=== PATIENT | female | born 1965 | race African-American/Black ===

== ENCOUNTER → 2021-03-17 14:54 | Outpatient (CLI) | payer OTHER, SELFPAY ==
[2021-03-17 15:26] LABS: COVID19 -Nasal RAPID Negative (Negative)
== END ==
PROVIDERS: Visit Provider Physician Assistant
DX: Z20.822 Contact with and (suspected) exposure to COVID-19 (principal)
CPT/HCPCS: 87635

== ENCOUNTER → 2021-03-17 15:37 | Outpatient (CLI) | payer OTHER, SELFPAY ==
--- NOTE | 2021-03-17 15:42 | DI.RAD.S_ITS ---
PROCEDURE: XR CHEST 2V INDICATIONS: cough, chest congestion, hx PNA TECHNIQUE: 2 views of the chest were acquired. COMPARISON: None. FINDINGS: Surgical changes and devices: None. Lungs and pleura: Masslike opacity is noted within the left perihilar region. Mediastinum: Mediastinal contours are normal. Heart size is enlarged. Bones and chest wall: No suspicious bony abnormalities. Soft tissues appear unremarkable. IMPRESSION: Masslike area perihilar opacity. While this could represent pneumonia, mass of other etiology cannot be excluded. No priors are available for comparison. CT chest is recommended for further evaluation. Dictated by: Yelitza Chiang M.D. on 03/17/2021 at 15:57 Approved by: Yelitza Chiang M.D. on 03/17/2021 at 15:58
== END ==
PROVIDERS: Referring Provider Physician Assistant; Visit Provider Physician Assistant
DX: J06.9 Acute upper respiratory infection, unspecified (principal); R91.8 Other nonspecific abnormal finding of lung field; R09.89 Other specified symptoms and signs involving the circulatory and respiratory systems; Z20.822 Contact with and (suspected) exposure to COVID-19; Z87.01 Personal history of pneumonia (recurrent)
CPT/HCPCS: 71046; 87635

== ENCOUNTER 2022-03-28 17:50 | Emergency (ER) | payer OTHER, SELFPAY ==
[2022-03-28] VITALS (10 sets, daily range): BP systolic 199–241; BP diastolic 85–118; PULSE 90–99; RESP 16–20; TEMP 37.5; O2SAT 93–95; BMI 47.3
--- NOTE | 2022-03-28 18:18 | ED.URI ---
HPI - URI/Sore Throat General Chief Complaint: Upper Respiratory Symptoms Stated Complaint: COVID +, Low oxy Time Seen by Provider: 03/28/22 18:09 Source: patient Mode of arrival: Wheelchair History of Present Illness HPI Narrative: 56-year-old female nonsmoker with history of hypertension presents with some shortness of breath with exertion. She states that she is had a cough for upwards of 2 weeks and presents today because family had told her that she seems more short of breath when she is walking than normal. She is had no fever or chills. Denies headache, fever, sore throat nor chest pain. She has no abdominal pain, nausea, vomiting or diarrhea. She denies being exposed to any obviously ill persons. She took both of her blood pressure medications about 1 hour prior to arrival. Related Data Home Medications Medication Instructions Recorded Confirmed atenolol 100 mg tablet 100 mg PO DAILY 03/28/22 03/28/22 benazepril 40 mg tablet 40 mg PO DAILY 03/28/22 03/28/22 Previous Rx's Medication Instructions Recorded furosemide 40 mg tablet (Lasix) 40 mg PO DAILY #5 tabs 03/28/22 hydralazine 100 mg tablet 100 mg PO TID #90 tabs 03/28/22 Allergies Allergy/AdvReac Type Severity Reaction Status Date / Time ibuprofen Allergy Swelling Verified 03/28/22 17:59 of Lip/Tongue/Throat Sulfa (Sulfonamide Allergy Anaphylaxis Verified 03/28/22 17:33 Antibiotics) Review of Systems Review of Systems Narrative: GENERAL: Denies chills, fatigue, malaise, fever, sweats. HEENT: Denies sinus pain, ear pain, sore throat, difficulty swallowing, dizziness. RESPIRATORY: See HPI CARDIOVASCULAR: Denies chest pain, palpitations, orthopnea, edema, GASTROINTESTINAL: Denies nausea, vomiting, abdominal pain, diarrhea, constipation, melena. : Denies dysuria, frequency, incontinence, hematuria, urinary retention. MUSCULOSKELETAL: denies weakness, joint pain, or bony pain SKIN: Denies rash, skin lesions, or other NEUROLOGIC: Denies weakness, headache, numbness, change in speech, confusion, seizures, incoordination. PSYCHIATRIC: No concerning psychosocial issues. 12 point review of systems is negative except for those stated above Patient History Social History Smoking Status: Never smoker Smoking Status: Never smoker Substance Use Type: does not use Exam Narrative Exam Narrative: GENERAL: [56] year old patient appears stated age. Well-developed patient, in mild distress. HEAD: Atraumatic. Normocephalic. EYES: Pupils equal round and reactive. Extraocular motions intact. No scleral icterus. No injection or drainage. ENT: Nose without bleeding, purulent drainage. Throat without erythema, tonsillar hypertrophy or exudate. Airway patent. NECK: Trachea midline. Non tender CARDIOVASCULAR: Regular rate and rhythm without murmurs, gallops, or rubs. RESPIRATORY:Faint crackles in bilateral bases. No wheezes or rhonchi, no evidence of respiratory distress, use of accessory muscles, tachypnea or hypoxemia i. GASTROINTESTINAL: Abdomen soft, non-tender, nondistended. EXTREMITIES: No edema or joint tenderness. BACK: Nontender without deformity or crepitance. No flank tenderness. NEURO: AOx3. SKIN: No rash or erythema of visible areas Initial Vital Signs Initial Vital Signs: Vital Signs Temperature 99.5 F 03/28/22 18:00 Pulse Rate 90 03/28/22 18:00 Respiratory Rate 20 03/28/22 18:00 Blood Pressure 238/118 H 03/28/22 18:00 Pulse Oximetry 95 03/28/22 18:00 Oxygen Delivery Method 03/28/22 18:00 Course Orders Ordered: ED Orders 03/28/22 18:19 Chest [XR chest 2V] Stat 03/28/22 18:25 EKG-12 Lead Stat 03/28/22 18:43 Complete Blood Count AUTO DIFF Stat Comprehensive Metabolic Panel Stat Lactate (Lactic Acid) Stat Magnesium Stat NT-proBNP (BNP-Adult 18+) Stat Procalcitonin Stat Troponin & CK Cardiac Panel Stat 03/28/22 19:46 Covid-19 + FLU A/B + RSV - PCR Stat Discontinued Medications Acetaminophen (Acetaminophen 325 Mg Tablet) 975 mg PO NOW ONE Stop: 03/28/22 20:28 Last Admin: 03/28/22 20:32 Dose: 975 mg Documented By: TAMIR Furosemide (Furosemide 40 Mg/4 Ml Vial) 40 mg IV NOW ONE Stop: 03/28/22 20:27 Last Admin: 03/28/22 20:33 Dose: 40 mg Documented By: TAMIR Hydralazine HCl (Hydralazine 20 Mg/Ml Vial) 20 mg IV NOW ONE Stop: 03/28/22 19:43 Last Admin: 03/28/22 19:49 Dose: 20 mg Documented By: TAMIR Labetalol HCl (Labetalol 20 Mg/4 Ml Syringe) 10 mg IV NOW ONE Stop: 03/28/22 18:25 Last Admin: 03/28/22 19:04 Dose: 10 mg Documented By: SALONI Nitroglycerin (Nitroglycerin 0.4 Mg Sl Tab) 0.4 mg SL NOW ONE Stop: 03/28/22 20:27 Last Admin: 03/28/22 20:31 Dose: 0.4 mg Documented By: TAMIR Reevaluation(s) Reevaluation #1: Blood pressure remains in the 240s over 100s after labetalol, hydralazine ordered Time: 19:43 Reevaluation #2: BP now 212/99 after hydralazine Time: 20:27 Vital Signs Vital signs: Vital Signs - 8 hr 03/28/22 18:00 03/28/22 19:04 03/28/22 19:45 Temperature 99.5 F Pulse Rate 90 97 H 96 H Respiratory Rate 20 16 Blood Pressure 238/118 H 235/105 H 241/111 H Pulse Oximetry 95 93 Oxygen Delivery Method Room Air Room Air 03/28/22 19:49 03/28/22 20:08 03/28/22 20:26 Temperature Pulse Rate 99 H 98 H Respiratory Rate 16 16 Blood Pressure 241/111 H 237/107 H 212/99 H Pulse Oximetry 93 Oxygen Delivery Method 03/28/22 20:31 03/28/22 20:59 03/28/22 21:15 Temperature Pulse Rate 97 H 98 H 90 Respiratory Rate 16 18 Blood Pressure 212/99 H 217/95 H 206/88 H Pulse Oximetry 93 93 Oxygen Delivery Method Room Air Room Air MDM - URI/Sore Throat Lab Data Result diagrams: 03/28/22 18:43 03/28/22 18:43 Labs: Lab Results 03/28/22 03/28/22 03/28/22 Range/Units 18:43 18:43 18:43 WBC 6.6 (4.5-11.0) X10^3/uL RBC 3.98 L (4.0-5.2) X10^6/uL Hgb 12.0 (12.0-16.0) g/dL Hct 36.0 (36-46) % MCV 90.4 (80-100) fL MCH 30.3 (26-34) PG MCHC 33.5 (30-36) % RDW 16.8 H (11.6-14.8) % Plt Count 238 (150-400) X10^3/uL Neut % (Auto) 80.2 H (50-75) % Lymph % (Auto) 5.9 L (25-40) % [place] % (Auto) 13.0 (3-14) % Eos % (Auto) 0.6 L (2-4) % Baso % (Auto) 0.3 (0-2) % Neut # (Auto) 5300 (7087-2771) /uL Lymph # (Auto) 400 L (8258-5833) /uL [place] # (Auto) 900 (0-900) /uL Eos # (Auto) 0 (0-450) /uL Baso # (Auto) 0 (0-100) /uL Sodium 140 (137-145) mmol/L Potassium 3.4 (3.4-5.1) mmol/L Chloride 101 (98-107) mmol/L Carbon Dioxide 27 (22-32) mmol/L BUN 11 (7-17) mg/dL Creatinine 1.03 (0.52-1.04) mg/dL Estimated GFR > 60 (>60) mL/min BUN/Creatinine Ratio 10.7 (6-22) Glucose 105 H (70-100) mg/dL Lactate 1.0 (0.7-2.1) mmol/L Calcium 9.6 (8.4-10.2) mg/dL Magnesium 1.6 (1.6-2.3) mg/dL Total Bilirubin 1.2 (0.2-1.3) mg/dL AST 30 (14-36) IU/L ALT 24 (<35) IU/L Alkaline Phosphatase 121 (38-126) U/L Total Creatine Kinase (30-135) U/L CK-MB (CK-2) (<2.37) ng/mL CK-MB (CK-2) Rel Index (1.5-5.0) % Troponin I (0.01-0.034) ng/mL NT-Pro-B Natriuret Pep 957 H (<125) pg/mL Total Protein 8.6 H (6.3-8.2) g/dL Albumin 4.1 (3.5-5.0) g/dL Globulin 4.5 H (1.7-4.1) g/dL Albumin/Globulin Ratio 0.9 L (1.0-2.8) Procalcitonin (<0.5) ng/mL SARS-CoV-2 (PCR) (Negative) Influenza A (RT-PCR) (NEGATIVE) Influenza B (RT-PCR) (NEGATIVE) RSV (PCR) (Negative) 03/28/22 03/28/22 03/28/22 Range/Units 18:43 18:43 19:46 WBC (4.5-11.0) X10^3/uL RBC (4.0-5.2) X10^6/uL Hgb (12.0-16.0) g/dL Hct (36-46) % MCV (80-100) fL MCH (26-34) PG MCHC (30-36) % RDW (11.6-14.8) % Plt Count (150-400) X10^3/uL Neut % (Auto) (50-75) % Lymph % (Auto) (25-40) % [place] % (Auto) (3-14) % Eos % (Auto) (2-4) % Baso % (Auto) (0-2) % Neut # (Auto) (0902-3101) /uL Lymph # (Auto) (1901-5247) /uL [place] # (Auto) (0-900) /uL Eos # (Auto) (0-450) /uL Baso # (Auto) (0-100) /uL Sodium (137-145) mmol/L Potassium (3.4-5.1) mmol/L Chloride (98-107) mmol/L Carbon Dioxide (22-32) mmol/L BUN (7-17) mg/dL Creatinine (0.52-1.04) mg/dL Estimated GFR (>60) mL/min BUN/Creatinine Ratio (6-22) Glucose (70-100) mg/dL Lactate (0.7-2.1) mmol/L Calcium (8.4-10.2) mg/dL Magnesium (1.6-2.3) mg/dL Total Bilirubin (0.2-1.3) mg/dL AST (14-36) IU/L ALT (<35) IU/L Alkaline Phosphatase (38-126) U/L Total Creatine Kinase 245 H (30-135) U/L CK-MB (CK-2) 0.28 (<2.37) ng/mL CK-MB (CK-2) Rel Index 0.1 L (1.5-5.0) % Troponin I < 0.012 (0.01-0.034) ng/mL NT-Pro-B Natriuret Pep (<125) pg/mL Total Protein (6.3-8.2) g/dL Albumin (3.5-5.0) g/dL Globulin (1.7-4.1) g/dL Albumin/Globulin Ratio (1.0-2.8) Procalcitonin 0.07 (<0.5) ng/mL SARS-CoV-2 (PCR) Positive H (Negative) Influenza A (RT-PCR) Flu a negative (NEGATIVE) Influenza B (RT-PCR) Flu b negative (NEGATIVE) RSV (PCR) Negative (Negative) Imaging Data Chest x-ray: Radiologist's Impression: [address] [id number] ReportSigned Patient: Chauncey Fu WMR#: [id number]: 4Acct:[id number]/Sex: 77 / MDate of Service: 03/28/22Loc: EDAccession Number: [id number] Procedure: XR chest 1V Ordering Provider: Fernando Carrizales D.O. PROCEDURE: XR CHEST 1V INDICATIONS: Short of breath TECHNIQUE: One view of the chest was acquired. COMPARISON: Outside Film, CT, CT CHEST WITHOUT CONTRAST, 01/31/2022, 11:40. FINDINGS: Surgical changes and devices: Post CABG changes are seen. Lungs and pleura: An incomplete inspiratory result is noted, causing a crowded appearance to the lung markings. No focal infiltrates are seen. No pneumothorax or significant pleural effusions are seen. Mild, streaky opacities are seen at the lung bases. Mediastinum: Mediastinal contours appear normal. Heart size is normal. A large hiatal hernia is seen. Atherosclerotic calcification of the aortic arch is noted. Bones and chest wall: No suspicious bony lesions. Age-appropriate bony degenerative changes are seen. Overlying soft tissues appear unremarkable. IMPRESSION: Low lung volumes, with likely atelectasis at the lung bases. Large hiatal hernia again seen. Postoperative and degenerative changes are seen. Dictated by: Attila Gómez M.D. on 03/28/2022 at 17:23 Approved by: Attila Gómez M.D. on 03/28/2022 at 17:24 ECG Data Interpretation: [1928] EKG is normal sinus rhythm rate [96 ] and free of any signs of ischemia or ectopy. LVH noted MDM Narrative Medical decision making narrative: 56-year-old female with history of hypertension presents with increasing shortness of breath and some body aches with dry hacking cough and a home COVID test that is positive. She denies any headache or blurred vision and has no chest pain. Differential diagnosis includes influenza, COVID-19, bacterial pneumonia, pulmonary edema among others. Blood pressure improves from the to 30s to low 200s over 80s with above-stated therapies, she has no increased work of breathing or hypoxemia at any point. BNP is slightly elevated and chest x-ray would suggest maybe pulmonary edema, patient is given furosemide and produces dilute urine. No indication for admission at this time, return precautions discussed, prescription sent to her pharmacy of choice and questions answered to her apparent satisfaction Discharge Plan Departure Patient Disposition: Home Clinical Impression: COVID-19, CHF (congestive heart failure), HTN (hypertension) Instructions: High Blood Pressure, DI for Heart Failure, COVID-19 Activity Restrictions/Additional Instructions: *You have been diagnosed with [COVID, mild pulmonary edema and hypertension. As we discussed your history and physical exam are reassuring, labs are reassuring and would suggest a bit of your shortness of breath is due to fluid overload. We will give you a water pill to take daily for each of the next few days, this should help with your blood pressure as well.] *What to do: *Please continue to take your regular medications as directed. [ x] New medication prescriptions sent to your pharmacy: [ ] [ ] New medication written as a paper prescription [ ] No new medications given *Please follow up with your primary care provider in 2-3 days, call for an appointment. Let them know you were seen in the Emergency Department and that we ask that you be seen in follow up. We will electronically transmit a record of today's note if your PCP is in our system *If you do not have a primary care provider please contact the [facility] Resource line at [phone]. They will ask some questions about your medical history and help get you set up with a doctor in the community. *Return to Emergency Department if you should have any new, worsening or concerning symptoms, such as [fever greater than 101 F, shaking chills, worsening pain, persistent vomiting or other bothersome symptoms] *You have been diagnosed with [ COVID-19] *What to do: ?* per recommendations from the CDC and the [facility] Department of Health ?* stay home except to get medical care. ?Restrict activities outside your home, except for getting medical care. ?Do not go to work, school, or public areas. ?Avoid using public transportation, ride sharing, or taxis. ?* separate yourself from other people in your home. ?* call ahead before visiting your doctor ?* Wear a facemask ?* Cover your coughs and sneezes ?* Clean your hands often ?* Avoid sharing household items ?* Clean all high-touch services every day ?* Monitor your symptoms and seek prompt medical attention if your illness is worsening, particularly with difficulty in breathing. You may discontinue your isolation when: ?1. You have been fever-free for at least 24 hours without the use of fever reducing medication, AND ?2. Your symptoms are getting better, AND ?3. At least 5 days have passed since symptoms first appeared ?4. If you have fever, continue to stay home until fever resolves Individuals with laboratory confirmed COVID-19 who have not had any symptoms may discontinue home isolation when at least 5 days have passed since the date of their first COVID-19 diagnostic test and have had no subsequent illness You should notifiy any friends and family that have been in close contact *If up to date on COVID Vaccines, then they do not need to quarantine unless symptoms develop. Get tested on day 5 (or sooner if symptoms develop). Take precautions and watch for symptoms until day 10 *If NOT up to date on COVID Vaccines, then CDC recommends quarantine for at least 5 full days. Wear a well fitted mask at home if you must be around others. If they ?develop symptoms they should get tested. If they remain asymptomatic they should get tested on day 5. They should take precautions and monitor for symptoms until day 10. Prescriptions: New hydralazine 100 mg tablet 100 mg PO TID Qty: 90 0RF furosemide [Lasix] 40 mg tablet 40 mg PO DAILY Qty: 5 0RF No Action atenolol 100 mg tablet 100 mg PO DAILY benazepril 40 mg tablet 40 mg PO DAILY Referrals: Miscellaneous,Doctor, MD [Primary Care Provider] -
--- NOTE | 2022-03-28 18:19 | DI.RAD.S_ITS ---
PROCEDURE: XR CHEST 2V INDICATIONS: cough, recent COVID diagnosis TECHNIQUE: 2 views of the chest were acquired. COMPARISON: [facility], CR, XR CHEST 2V, 03/17/2021, 15:36. FINDINGS: Surgical changes and devices: None. Lungs and pleura: There is appearance of increased interstitial opacities. Mediastinum: Mediastinal contours are normal. Heart size is mildly prominent. Bones and chest wall: No suspicious bony abnormalities. Soft tissues appear unremarkable. IMPRESSION: Increased interstitial opacities suggestive of pneumonia versus edema. Dictated by: Yelitza Chiang M.D. on 03/28/2022 at 19:24 Approved by: Yelitza Chiang M.D. on 03/28/2022 at 19:24
[2022-03-28 18:59] LABS: Add Manual Diff / Slide Review NO; Basophils Absolute Auto 0 /uL (0-100); Basophils Percent Auto 0.3 % (0-2); Eosinophils Absolute Auto 0 /uL (0-450); Eosinophils Percent Auto 0.6 % (2-4); Lymphocytes Absolute Auto 400 /uL (1100-4500); Lymphocytes Percent Auto 5.9 % (25-40); Mean Corpuscular HGB Conc 33.5 % (30-36); Mean Corpuscular Hemoglobin 30.3 PG (26-34); Mean Corpuscular Volume 90.4 fL (80-100); Monocytes Absolute Auto 900 /uL (0-900); Neutrophils Absolute Auto 5300 /uL (1500-7000); Neutrophils Percent Auto 80.2 % (50-75); Platelet Count 238 X10^3/uL (150-400); Red Blood Cell Count 3.98 X10^6/uL (4.0-5.2); Red Cell Distribution Width 16.8 % (11.6-14.8); White Blood Cell Count 6.6 X10^3/uL (4.5-11.0)
[2022-03-28] MEDS: LABETALOL 20 MG/4 ML SYRINGE 10 MG IV (19:04)
[2022-03-28 19:10] LABS: Creatine Kinase 245 U/L (30-135)
[2022-03-28 19:12] LABS: Alanine Aminotransferase 24 IU/L (<35); Albumin 4.1 g/dL (3.5-5.0); Albumin Globulin Ratio 0.9 (1.0-2.8); Alkaline Phosphatase 121 U/L (38-126); Aspartate Aminotransferase 30 IU/L (14-36); BUN Creatinine Ratio 10.7 (6-22); Bilirubin Total 1.2 mg/dL (0.2-1.3); Blood Urea Nitrogen 11 mg/dL (7-17); Calcium 9.6 mg/dL (8.4-10.2); Carbon Dioxide 27 mmol/L (22-32); Chloride 101 mmol/L (98-107); Estimated Glomerular Filt Rate > 60 mL/min (>60); Globulin 4.5 g/dL (1.7-4.1); Glucose 105 mg/dL (70-100); HEMOLYSIS 44 (0-50); Magnesium 1.6 mg/dL (1.6-2.3); Potassium 3.4 mmol/L (3.4-5.1); Sodium 140 mmol/L (137-145); Total Protein 8.6 g/dL (6.3-8.2)
[2022-03-28 19:21] LABS: NT-proBNP (BNP-Adult 18+) 957 pg/mL (<125)
[2022-03-28 19:23] LABS: Troponin I < 0.012 ng/mL (0.01-0.034)
[2022-03-28 19:26] LABS: CKMB % Relative Index 0.1 % (1.5-5.0); Creatine Kinase MB 0.28 ng/mL (<2.37)
[2022-03-28] MEDS: HYDRALAZINE 20 MG/ML VIAL IV (19:49)
[2022-03-28] MEDS: NITROGLYCERIN 0.4 MG SL TAB SL (20:31)
[2022-03-28] MEDS: ACETAMINOPHEN 325 MG TABLET 975 MG PO (20:32)
[2022-03-28] MEDS: FUROSEMIDE 40 MG/4 ML VIAL IV (20:33)
[2022-03-28 20:38] LABS: Procalcitonin 0.07 ng/mL (<0.5)
[2022-03-28 20:39] LABS: Influenza A - CEPHEID Flu A NEGATIVE (NEGATIVE); Influenza B - CEPHEID Flu B NEGATIVE (NEGATIVE); Respiratory Syncytial Virus Negative (Negative)
[2022-03-28 20:51] LABS: COVID-19 CEPHEID 4-PLEX PCR POSITIVE (Negative)
== END 2022-03-28 21:40 | disposition home or self-care (01) ==
PROVIDERS: Emergency Provider Emergency Medicine
DX: U07.1 COVID-19 (principal); I50.9 Heart failure, unspecified; I10 Essential (primary) hypertension
CPT/HCPCS: 0241U; 36415; 71046; 80053; 82550; 82553; 83605; 83735; 83880; 84145; 84484; 85025; 93005; 96374; 96375; 99284; J0360; J1940

== ENCOUNTER 2022-04-29 08:01 | Emergency (ER) | payer OTHER, SELFPAY ==
[2022-04-29] VITALS (9 sets, daily range): BP systolic 123–212; BP diastolic 90–114; PULSE 75–95; RESP 22–28; TEMP 36.8; O2SAT 93–96; BMI 46.7
--- NOTE | 2022-04-29 08:37 | ED_ITS ---
HPI - SOB/Dyspnea General Chief Complaint: Shortness of Breath/Dyspnea Stated Complaint: cough and SOB since 04/02 Time Seen by Provider: 04/29/22 08:30 Source: patient Mode of arrival: Ambulatory Limitations: no limitations History of Present Illness HPI Narrative: Patient is a 56-year-old female history of hypertension presents today with increasing shortness of breath. She reports that she went to [place] june through January by the end of February she was diagnosed with COVID. She was actually seen evaluated here in the emergency department 03/28/2022 found to have some congestive heart failure she was put on Lasix which she said improved. However she continues to have cough and shortness of breath with exertion. She reports orthopnea but no peripheral edema. She denies any fever or chills. But does report some productive cough. She denies any chest pain. She is noted to be quite hypertensive in the emergency department. She says she just can not get rid of the cough. She denies any nausea vomiting or abdominal pain Related Data Home Medications Medication Instructions Recorded Confirmed atenolol 100 mg tablet 100 mg PO DAILY 03/28/22 03/28/22 benazepril 40 mg tablet 40 mg PO DAILY 03/28/22 03/28/22 Previous Rx's Medication Instructions Recorded furosemide 40 mg tablet (Lasix) 40 mg PO DAILY #5 tabs 03/28/22 hydralazine 100 mg tablet 100 mg PO TID #90 tabs 03/28/22 Allergies Allergy/AdvReac Type Severity Reaction Status Date / Time ibuprofen Allergy Swelling Verified 03/28/22 17:59 of Lip/Tongue/Throat Sulfa (Sulfonamide Allergy Anaphylaxis Verified 03/28/22 17:33 Antibiotics) Review of Systems Review of Systems ROS Unobtainable: All systems reviewed & are unremarkable except as noted in HPI and below Patient History Social History Smoking Status: Never smoker Smoking Status: Never smoker Substance Use Type: does not use Exam Initial Vital Signs Initial Vital Signs: Vital Signs Temperature 98.3 F 04/29/22 08:16 Pulse Rate 84 04/29/22 08:16 Respiratory Rate 24 04/29/22 08:16 Blood Pressure 123/114 H 04/29/22 08:16 Pulse Oximetry 93 04/29/22 08:16 Oxygen Delivery Method 04/29/22 08:16 GENERAL: Alert pleasant 56-year-old female HEENT: Head atraumatic,EOMI, pupils reactive, face symmetric, moist mucous membranes CARDIOVASCULAR: Regular rate and rhythm without murmurs, rubs or gallops. RESPIRATORY: Clear bilaterally about cough with breathing speaking full sentences no respiratory distress ABDOMEN: Soft, nontender. Normoactive bowel sounds all 4 quadrants. No guar ding or rebound. EXTREMITIES: Normal range of motion, no clubbing or edema. Neurovascularly intact NEUROLOGICAL: Alert and oriented x4.Normal gait and speech. SKIN: Warm, dry, no laceration, no petechiae, no rashes or lesions. Course Orders Ordered: Discontinued Medications Albuterol (Albuterol 2.5 Mg/3 Ml Neb (Adult)) 2.5 mg INH NOW ONE Stop: 04/29/22 08:39 Last Admin: 04/29/22 10:36 Dose: 2.5 mg Documented By: NR Vital Signs Vital signs: Vital Signs - 8 hr 04/29/22 16:13 04/29/22 16:14 Pulse Rate 95 H Respiratory Rate 22 Blood Pressure 211/94 H Pulse Oximetry 96 Oxygen Delivery Method Room Air MDM - SOB/Dyspnea Lab Data Result diagrams: 04/29/22 11:20 04/29/22 11:20 Labs: Lab Results 04/29/22 04/29/22 04/29/22 Range/Units 09:02 11:20 11:20 WBC (4.5-11.0) X10^3/uL RBC (4.0-5.2) X10^6/uL Hgb (12.0-16.0) g/dL Hct (36-46) % MCV (80-100) fL MCH (26-34) PG MCHC (30-36) % RDW (11.6-14.8) % Plt Count (150-400) X10^3/uL Neut % (Auto) (50-75) % Lymph % (Auto) (25-40) % [place] % (Auto) (3-14) % Eos % (Auto) (2-4) % Baso % (Auto) (0-2) % Neut # (Auto) (1132-1313) /uL Lymph # (Auto) (2022-8691) /uL [place] # (Auto) (0-900) /uL Eos # (Auto) (0-450) /uL Baso # (Auto) (0-100) /uL D-Dimer 1021 H (<500) ng/ml Sodium (137-145) mmol/L Potassium (3.4-5.1) mmol/L Chloride (98-107) mmol/L Carbon Dioxide (22-32) mmol/L BUN (7-17) mg/dL Creatinine (0.52-1.04) mg/dL Estimated GFR (>60) mL/min BUN/Creatinine Ratio (6-22) Glucose (70-100) mg/dL Calcium (8.4-10.2) mg/dL Total Bilirubin (0.2-1.3) mg/dL AST (14-36) IU/L ALT (<35) IU/L Alkaline Phosphatase (38-126) U/L Total Creatine Kinase (30-135) U/L CK-MB (CK-2) (<2.37) ng/mL CK-MB (CK-2) Rel Index (1.5-5.0) % Troponin I (0.01-0.034) ng/mL NT-Pro-B Natriuret Pep (<125) pg/mL Total Protein (6.3-8.2) g/dL Albumin (3.5-5.0) g/dL Globulin (1.7-4.1) g/dL Albumin/Globulin Ratio (1.0-2.8) Lipase (23-300) U/L Procalcitonin 0.06 (<0.5) ng/mL SARS-CoV-2 (PCR) Negative (Negative) Influenza A (RT-PCR) Flu a negative (NEGATIVE) Influenza B (RT-PCR) Flu b negative (NEGATIVE) RSV (PCR) Positive A (Negative) 04/29/22 04/29/22 Range/Units 11:20 11:20 WBC 6.4 (4.5-11.0) X10^3/uL RBC 3.83 L (4.0-5.2) X10^6/uL Hgb 11.7 L (12.0-16.0) g/dL Hct 34.9 L (36-46) % MCV 91.1 (80-100) fL MCH 30.4 (26-34) PG MCHC 33.4 (30-36) % RDW 17.5 H (11.6-14.8) % Plt Count 237 (150-400) X10^3/uL Neut % (Auto) 73.4 (50-75) % Lymph % (Auto) 14.8 L (25-40) % [place] % (Auto) 9.7 (3-14) % Eos % (Auto) 1.3 L (2-4) % Baso % (Auto) 0.8 (0-2) % Neut # (Auto) 4700 (1582-9947) /uL Lymph # (Auto) 900 L (3564-8940) /uL [place] # (Auto) 600 (0-900) /uL Eos # (Auto) 100 (0-450) /uL Baso # (Auto) 0 (0-100) /uL D-Dimer (<500) ng/ml Sodium 141 (137-145) mmol/L Potassium 3.6 (3.4-5.1) mmol/L Chloride 103 (98-107) mmol/L Carbon Dioxide 28 (22-32) mmol/L BUN 13 (7-17) mg/dL Creatinine 1.13 H (0.52-1.04) mg/dL Estimated GFR 57 L (>60) mL/min BUN/Creatinine Ratio 11.5 (6-22) Glucose 100 (70-100) mg/dL Calcium 9.5 (8.4-10.2) mg/dL Total Bilirubin 1.1 (0.2-1.3) mg/dL AST 21 (14-36) IU/L ALT 19 (<35) IU/L Alkaline Phosphatase 105 (38-126) U/L Total Creatine Kinase 200 H (30-135) U/L CK-MB (CK-2) 2.93 H (<2.37) ng/mL CK-MB (CK-2) Rel Index 1.5 (1.5-5.0) % Troponin I < 0.012 (0.01-0.034) ng/mL NT-Pro-B Natriuret Pep 573 H (<125) pg/mL Total Protein 7.5 (6.3-8.2) g/dL Albumin 3.9 (3.5-5.0) g/dL Globulin 3.6 (1.7-4.1) g/dL Albumin/Globulin Ratio 1.1 (1.0-2.8) Lipase 95 (23-300) U/L Procalcitonin (<0.5) ng/mL SARS-CoV-2 (PCR) (Negative) Influenza A (RT-PCR) (NEGATIVE) Influenza B (RT-PCR) (NEGATIVE) RSV (PCR) (Negative) Imaging Data CT scan - chest: Radiologist's Impression: nt: Jovan Rebollar MR#: [id number] : 1965 Acct:[id number] Age/Sex: 56 / F Date of Service: 04/29/22 Loc: ED Accession Number: [id number] ?? Procedure: CT angio chest PE protocol Ordering Provider: Lolita Pritchett D.O. PROCEDURE:? CT ANGIO CHEST PE PROTOCOL ? INDICATIONS:? high dimer sob ? TECHNIQUE:? After the administration of intravenous contrast, 2 mm thick sections acquired from the pulmonary apices to the posterior costophrenic angles.? 3-dimensional maximum intensity projection (MIP) coronal and sagittal reformats were then acquired through the thorax.? For radiation dose reduction, the following was used:? automated exposure control, adjustment of mA and/or kV according to patient size.? ? COMPARISON:? None. ? FINDINGS:? Normal heart size.? No pericardial effusion.? Normal caliber main pulmonary trunk.? No pulmonary artery filling defect identified.? Mixed ground-glass and consolidative opacity in the right lower lobe posteriorly and near the hilum.? Additional ground-glass airspace opacity in the right upper lobe adjacent to the fissure in the mid lung.? No significant pleural abnormality.? Mild right hilar and right mediastinal lymphadenopathy likely reactive.? Nodular adreniform thickening.? No acute fi nding in the partially visualized upper abdomen. ? IMPRESSION:? Right upper lobe and lower lobe airspace opacity in the mid lung with associated lymphadenopathy is presumably infectious.? Follow-up to document complete clinical and radiographic resolution is recommended in order to exclude neoplasm.? No pulmonary embolism demonstrated. ? ? Dictated by: Tim Girard M.D. on 04/29/2022 at 14:29 ? ? Chest x-ray: Radiologist's Impression: Jovan Rebollar MR#: [id number] : 1965 Acct:[id number] Age/Sex: 56 / F Date of Service: 04/29/22 Loc: ED Accession Number: [id number] ?? Procedure: XR chest 1V Ordering Provider: Lolita Pritchett D.O. PROCEDURE:? XR CHEST 1V ? INDICATIONS:? chest pain ? TECHNIQUE:? One view of the chest was acquired.? ? COMPARISON:? [facility], CR, XR CHEST 2V, 03/28/2022, 18:26. ? FINDINGS:? ? Surgical changes and devices:? None.? ? Lungs and pleura:? Lungs are clear.? No pleural effusions or pneumothorax.? ? Mediastinum:? Mediastinal contours appear normal.? Heart size is enlarged.? ? Bones and chest wall:? No suspicious bony lesions.? Overlying soft tissues appear unremarkable.? ? IMPRESSION:? Cardiomegaly without acute cardiopulmonary findings ? ? ? Approved by: Jeremias Veliz M.D. on 04/29/2022 at 9:17? ECG Data Interpretation: Normal sinus rhythm rate 71 CT interval 140 QRS 94 QTC 454, similar to previous EKG 03/28/2020 MDM Narrative Medical decision making narrative: Patient presents today with ongoing cough and shortness of breath. Previously diagnosed with mild congestive heart failure however BNP today is lower than what it was previously. Blood work is overall reassuring however D-dimer is elevated. Concern for pulmonary embolism with recent COVID infection and elevated D-dimer. CT is negative. She is actually now positive for RSV. Supportive care only. Patient did receive nebulizer in the ED she said it did not help. No need to send home with inhaler. No need for antibiotics. No leukocytosis or fever. Discharge Plan Departure Patient Disposition: Home Clinical Impression: RSV infection Instructions: DI for Respiratory Syncytial Virus -- Adults Activity Restrictions/Additional Instructions: *You have been diagnosed with RSV infection *What to do: At this time I recommend [id number] saline nasal spray Neti pot it may or may not help. Unfortunately this is just going to run its course. Make sure you are drinking fluids fever control as needed *Continue to take medications as directed *Follow up with your primary care provider in 2-3 days or call [phone] *Return to ER if you should have increasing shortness of chest pain not drinking fluids or any new, worsening or concerning symptoms Prescriptions: No Action atenolol 100 mg tablet 100 mg PO DAILY benazepril 40 mg tablet 40 mg PO DAILY hydralazine 100 mg tablet 100 mg PO TID Qty: 90 0RF furosemide [Lasix] 40 mg tablet 40 mg PO DAILY Qty: 5 0RF Referrals: Miscellaneous,Doctor, MD [Primary Care Provider] -
--- NOTE | 2022-04-29 08:38 | DI.RAD.S_ITS ---
PROCEDURE: XR CHEST 1V INDICATIONS: chest pain TECHNIQUE: One view of the chest was acquired. COMPARISON: [facility], , XR CHEST 2V, 03/28/2022, 18:26. FINDINGS: Surgical changes and devices: None. Lungs and pleura: Lungs are clear. No pleural effusions or pneumothorax. Mediastinum: Mediastinal contours appear normal. Heart size is enlarged. Bones and chest wall: No suspicious bony lesions. Overlying soft tissues appear unremarkable. IMPRESSION: Cardiomegaly without acute cardiopulmonary findings Approved by: Jeremias Veliz M.D. on 04/29/2022 at 9:17
[2022-04-29] MEDS: ALBUTEROL 2.5 MG/3 ML NEB (ADULT) INH (10:36)
[2022-04-29 11:49] LABS: Influenza A - CEPHEID Flu A NEGATIVE (NEGATIVE); Influenza B - CEPHEID Flu B NEGATIVE (NEGATIVE); Respiratory Syncytial Virus POSITIVE (Negative)
[2022-04-29 11:50] LABS: COVID-19 CEPHEID 4-PLEX PCR Negative (Negative)
[2022-04-29 11:53] LABS: Add Manual Diff / Slide Review NO; Basophils Absolute Auto 0 /uL (0-100); Basophils Percent Auto 0.8 % (0-2); Eosinophils Absolute Auto 100 /uL (0-450); Eosinophils Percent Auto 1.3 % (2-4); Hematocrit 34.9 % (36-46); Hemoglobin 11.7 g/dL (12.0-16.0); Lymphocytes Absolute Auto 900 /uL (1100-4500); Lymphocytes Percent Auto 14.8 % (25-40); Mean Corpuscular HGB Conc 33.4 % (30-36); Mean Corpuscular Hemoglobin 30.4 PG (26-34); Mean Corpuscular Volume 91.1 fL (80-100); Monocytes Absolute Auto 600 /uL (0-900); Monocytes Percent Auto 9.7 % (3-14); Neutrophils Absolute Auto 4700 /uL (1500-7000); Neutrophils Percent Auto 73.4 % (50-75); Platelet Count 237 X10^3/uL (150-400); Red Blood Cell Count 3.83 X10^6/uL (4.0-5.2); Red Cell Distribution Width 17.5 % (11.6-14.8); White Blood Cell Count 6.4 X10^3/uL (4.5-11.0)
[2022-04-29 12:04] LABS: D Dimer 1021 ng/ml (<500)
[2022-04-29 12:12] LABS: Alanine Aminotransferase 19 IU/L (<35); Albumin 3.9 g/dL (3.5-5.0); Albumin Globulin Ratio 1.1 (1.0-2.8); Alkaline Phosphatase 105 U/L (38-126); Aspartate Aminotransferase 21 IU/L (14-36); BUN Creatinine Ratio 11.5 (6-22); Bilirubin Total 1.1 mg/dL (0.2-1.3); Blood Urea Nitrogen 13 mg/dL (7-17); Calcium 9.5 mg/dL (8.4-10.2); Carbon Dioxide 28 mmol/L (22-32); Chloride 103 mmol/L (98-107); Creatine Kinase 200 U/L (30-135); Estimated Glomerular Filt Rate 57 mL/min (>60); Globulin 3.6 g/dL (1.7-4.1); Glucose 100 mg/dL (70-100); HEMOLYSIS < 15 (0-50); Lipase 95 U/L (23-300); Potassium 3.6 mmol/L (3.4-5.1); Sodium 141 mmol/L (137-145); Total Protein 7.5 g/dL (6.3-8.2)
[2022-04-29 12:25] LABS: NT-proBNP (BNP-Adult 18+) 573 pg/mL (<125); Troponin I < 0.012 ng/mL (0.01-0.034)
[2022-04-29 12:28] LABS: CKMB % Relative Index 1.5 % (1.5-5.0); Creatine Kinase MB 2.93 ng/mL (<2.37)
[2022-04-29 12:29] LABS: Procalcitonin 0.06 ng/mL (<0.5)
--- NOTE | 2022-04-29 12:32 | DI.CT.S_ITS ---
PROCEDURE: CT ANGIO CHEST PE PROTOCOL INDICATIONS: high dimer sob TECHNIQUE: After the administration of intravenous contrast, 2 mm thick sections acquired from the pulmonary apices to the posterior costophrenic angles. 3-dimensional maximum intensity projection (MIP) coronal and sagittal reformats were then acquired through the thorax. For radiation dose reduction, the following was used: automated exposure control, adjustment of mA and/or kV according to patient size. COMPARISON: None. FINDINGS: Normal heart size. No pericardial effusion. Normal caliber main pulmonary trunk. No pulmonary artery filling defect identified. Mixed ground-glass and consolidative opacity in the right lower lobe posteriorly and near the hilum. Additional ground-glass airspace opacity in the right upper lobe adjacent to the fissure in the mid lung. No significant pleural abnormality. Mild right hilar and right mediastinal lymphadenopathy likely reactive. Nodular adreniform thickening. No acute finding in the partially visualized upper abdomen. IMPRESSION: Right upper lobe and lower lobe airspace opacity in the mid lung with associated lymphadenopathy is presumably infectious. Follow-up to document complete clinical and radiographic resolution is recommended in order to exclude neoplasm. No pulmonary embolism demonstrated. Dictated by: Tim Girard M.D. on 04/29/2022 at 14:29 Approved by: Tim Girard M.D. on 04/29/2022 at 14:33
== END 2022-04-29 16:18 | disposition home or self-care (01) ==
PROVIDERS: Emergency Provider Emergency Medicine
DX: J06.9 Acute upper respiratory infection, unspecified (principal); B97.4 Respiratory syncytial virus as the cause of diseases classified elsewhere; R07.9 Chest pain, unspecified; I50.9 Heart failure, unspecified; Z86.16 Personal history of COVID-19; Z79.01 Long term (current) use of anticoagulants; Z79.899 Other long term (current) drug therapy; Z20.822 Contact with and (suspected) exposure to COVID-19
CPT/HCPCS: 0241U; 71045; 71275; 80053; 82550; 82553; 83690; 83880; 84145; 84484; 85025; 85379; 93005; 99283; 99284; J7613; Q9967